=== PATIENT | female | born 1955 | race Caucasian/White ===

== ENCOUNTER → 2018-12-29 | Outpatient (CLI) | payer BC ==
[~2018-12-29] MED LIST: ASP81TEC PO; CALC-656 PO; CATHETER FLUSH 10 ML SYR IV PRN; CEPH500C PO; COENZYME B COMPLEX PO; CYAN10007 PO; ESCT10T PO; HUM100VI SQ; HYDR1CAP2 PO; MULT-608 PO; REGADENOSON 0.4 MG/5 ML SYR (LEXISCAN) IV ONE; TELM40T PO; [UNRECOGNIZED DRUG - OTHER] PO
[2018-12-29 09:40] VITALS: BP 204/75
[2018-12-29 09:44] VITALS: BP 183/59
--- NOTE | 2018-12-29 16:06 | STRESS TEST ---
DATE OF SERVICE: 12/29/2018 PRIMARY PHYSICIAN: Dr. Baptiste. OTHER PHYSICIAN: Dr. Rodriguez. CLINICAL DIAGNOSIS: Shortness of breath. Baseline images were carried out after injection of 9.52 mCi of technetium-99m Tetrofosmin. This was followed by 0.4 mg regadenoson and 27.8 mCi of technetium-99m Tetrofosmin for stress imaging. The electrocardiogram showed sinus rhythm with occasional isolated premature ventricular contractions and with left bundle branch block. The electrocardiogram did not change significantly with the regadenoson infusion. The patient noted some nausea following regadenoson infusion, which resolved in a few minutes. Review of images at rest and following stress indicates a small to medium sized basal septal perfusion defect that appears to be transient. Gated images show normal global left ventricular systolic function with normal regional wall motion. Left ventricular ejection fraction is calculated to be 62%. Left ventricular end diastolic volume is 74 mL. TID is absent (0.98). CONCLUSIONS: 1. This study is suggestive of a small to moderate amount of basal septal ischemia. 2. Normal regional wall motion. 3. Normal global left ventricular systolic function with a calculated ejection fraction of 62%. Job ID: [id number] DocumentID: [id number] Dictated Date: 12/29/2018 15:54:37 Therapist Date: 12/29/2018 16:05:44 Dictated By: SURESH BAPTISTE MD, MA, FACP, FACC,
== END ==
LOC: CARD 07:08
PROVIDERS: ATTEND Internal Medicine Cardiovascular Disease
DX: E11.9 Type 2 diabetes mellitus without complications (principal); E78.5 Hyperlipidemia, unspecified; E66.9 Obesity, unspecified; G47.33 Obstructive sleep apnea (adult) (pediatric)
CPT/HCPCS: 78452; 93017

== ENCOUNTER 2019-01-05 09:41 | Day surgery (SDC) | payer BC ==
[2019-01-05] VITALS (11 sets, daily range): BP systolic 159–188; BP diastolic 71–94
[~2019-01-05] VITALS: Ht 170.2 cm; Wt 109.3 kg
[~2019-01-05 09:41] MED LIST changes: -CATHETER FLUSH 10 ML SYR IV PRN; -REGADENOSON 0.4 MG/5 ML SYR (LEXISCAN) IV ONE
[2019-01-05] MEDS ORDERED: NS IV 1000 ML 1,000 ML ONE (09:57)
[2019-01-05] MEDS ORDERED: HEParin (CATH LAB) 2,000 ML IV ONE (09:57)
[2019-01-05] MEDS ORDERED: LIDOCAINE 1% INJ 20 ML 20 ML VIAL ONE (09:57)
[2019-01-05] MEDS ORDERED: NS IV 1000 ML 1,000 ML IV SCH ×3 (10:08→14:20)
[2019-01-05 10:25] LABS: MEAN PLATELET VOLUME 9.2 FL (7.4-10.4); RED CELL DISTRIBUTION WIDTH 13.9 % (10.0-14.5); WHITE BLOOD COUNT 5.9 10^3/uL (4.3-11.0)
[2019-01-05 10:36] LABS: PROTHROMBIN TIME PATIENT 13.7 SEC (12.2-14.7)
[2019-01-05 10:43] LABS: ALANINE AMINOTRANSFERASE 20 U/L (0-55); ALBUMIN 4.1 GM/DL (3.2-4.5); ALKALINE PHOSPHATASE 78 U/L (40-136); BILIRUBIN,TOTAL 0.8 MG/DL (0.1-1.0); BUN/CREATININE RATIO 18; CALCIUM 9.4 MG/DL (8.5-10.1); CARBON DIOXIDE 25 MMOL/L (21-32); CHLORIDE 107 MMOL/L (98-107); CHOLESTEROL 132 MG/DL (< 200); CREATININE SERUM 0.71 MG/DL (0.60-1.30); GFR ESTIMATED > 60; GLUCOSE 175 MG/DL (70-105); HDL CHOLESTEROL 60 MG/DL (40-60); POTASSIUM 4.1 MMOL/L (3.6-5.0); SODIUM 141 MMOL/L (135-145); TRIGLYCERIDES 91 MG/DL (<150); VLDL CHOLESTEROL 18 MG/DL (5-40)
[2019-01-05] MEDS ORDERED: METF-397 PO (10:56)
[2019-01-05] MEDS ORDERED: GLIP5TAB13 PO (10:56)
[2019-01-05] MEDS ORDERED: PRAM0.12 PO (10:56)
[2019-01-05] MEDS ORDERED: NITR1PAT83 TD (10:56)
[2019-01-05] MEDS ORDERED: LATA7.5D OP (10:56)
[2019-01-05] MEDS ORDERED: INSU300I3 SQ (10:56)
[2019-01-05] MEDS ORDERED: CARV6.25 PO (10:56)
[2019-01-05] MEDS ORDERED: CLOP75TA28 PO (10:56)
[2019-01-05] MEDS ORDERED: ISOS20TA73 PO (10:56)
[2019-01-05] MEDS ORDERED: DAPA10TA PO (10:56)
[2019-01-05] MEDS ORDERED: ATOR40TA70 PO (10:56)
[2019-01-05] MEDS ORDERED: fentaNYL INJECTION 100 MCG/2 ML AMP ONE (13:17)
[2019-01-05] MEDS ORDERED: MIDAZOLAM 5 MG/5 ML (VERSED) VIAL ONE (13:17)
--- NOTE | 2019-01-05 14:20 | Cardiac Procedure Note-CS/ASA ---
Pre-Procedure Note Pre-Op Procedure Note H&P Reviewed The H&P was reviewed, patient examined and no changes noted. Date H&P Reviewed: Jan 05, 2019 Time H&P Reviewed: 13:15 Conscious Sedation Pre-Proced Time 13:15 ASA Score 3 For ASA 3 and 4: Consider anesthesia and medical clearance. Also, for patients with a history of failed moderate sedation consider anesthesia. Airway Lungs Heart ASA score ASA 1: a normal healthy patient ASA 2: a patient with a mild systemic disease (mid diabetes, controlled hypertension, obesity ASA 3: a patient with a severe systemic disease that limits activity (angina, COPD, prior Myocardial infarction) ASA 4: a patient with an incapacitating disease that is a constant threat to life (CHF, renal failure) ASA 5: a moribund patient not expected to survive 24 hrs. (ruptured aneurysm) ASA 6: a declared brain- patient whose organs are being harvested. For emergent operations, add the letter E after the classification Mallampati Classification Grade 2 Sedation Plan Analgesia, Amnesia, Plan communicated to team members, Discussed options with patient/fam, Discussed risks with patient/fam The patient is an appropriate candidate to undergo the planned procedure, sedation, and anesthesia. The patient immediately re-assessed prior to indication. SURESH PHAM MD FACP FAC CCDS Jan 05, 2019 14:20
--- NOTE | 2019-01-05 14:23 | Discharge Inst-Post CATH ---
Discharge Inst-CATH/EP Problems Reviewed?: Yes Post Cardiac Cath/EP D/C Inst Follow Up/Plan F/u with Dr Baptiste in 2 weeks ACTIVITY * Go Home directly and rest. * Limit activity of the leg (or wrist if it was used) for 7 days including aerobics, swimming, jogging, bicycling, etc. * Restrict stair-climbing for 7 days if possible, if not, climb up with your non-cath leg, then bring together on the same step. * Avoid lifting, pushing, pulling or excessive movement of the affected extremity for 7 days. * Customary sexual activity may be resumed after 2 days-use caution not to use a position that strains or causes pain to the affected extremity. * No driving for 24 hours. * NO SMOKING. * Avoid straining for bowel movements for 7 days. * Gentle walking on level ground is allowed. * Returning to work will depend on the type of procedure and the results. Your doctor will discuss this with you. CALL YOUR DOCTOR FOR ANY OF THE FOLLOWING: *If bleeding from the puncture site occurs- Apply gentle pressure to site with clean cloth and call your doctor or EMS. * If a knot or lump forms under the skin, increases in size, or causes pain. * If bruising appears to be worsening or moving further down your leg instead of disappearing. * Temperature above 101 F. CARE OF YOUR GROIN INCISION; * Bruising or purple discoloration of the skin near the puncture site is common. * You may shower only, no bathtub bathing for 5 days. Be careful to avoid slipping as your leg may feel stiff. * If a closure device was used on your femoral artery, please see the attached guide regarding care of the device and your leg. * Leave dressing on FOR 24 hours. CARE OF YOUR WRIST INCISION; * Bruising or purple discoloration of the skin near the puncture site is common. * You may shower. * DO NOT submerge wrist. * Leave dressing on FOR 24 hours. SURESH BAPTISTE MD FACP FAC CCDS Jan 05, 2019 14:23
--- NOTE | 2019-01-05 14:24 | Discharge Inst-Cardiology ---
Discharge Inst-Cardiac Discharge Medications Continued Medications: Aspirin (Aspirin Ec 81 Mg) 81 Mg Tabec 81 MG PO HS Atorvastatin Calcium (Atorvastatin Calcium) 40 Mg Tablet 40 MG PO DAILY, TAB Calcium Carbonate/Vitamin D3 (Calcium 500 + D Tablet) 1 Each Tablet 1 EACH PO HS Carvedilol (Coreg) 6.25 Mg Tablet 6.25 MG PO BID, TAB Clopidogrel Bisulfate (Clopidogrel) 75 Mg Tablet 75 MG PO DAILY, TAB Cyanocobalamin (Vitamin B12) 1,000 Mcg Tablet.sa 2500 MCG PO HS Dapagliflozin Propanediol (Farxiga) 10 Mg Tablet 10 MG PO DAILY, TAB Escitalopram Oxalate (Lexapro) 10 Mg Tablet 1 EACH PO HS Glipizide (Glipizide) 5 Mg Tablet 5 MG PO DAILY, TAB Hydrocodone Bit/Acetaminophen (Hydrocodone-Apap 5-500 Cap) 1 Each Capsule 1 - 2 EACH PO Q 4 - 6 HRS PRN, #30 Insulin Glargine,Hum.rec.anlog (Toujeo Max Solostar) 300 Unit/1 Ml Insuln.pen 70 UNIT SQ DAILY, EA Isosorbide Mononitrate (Isosorbide Mononitrate) 20 Mg Tablet 30 MG PO NEEDED, TAB Latanoprost/Pf (Latanoprost 0.005% Eye Drop) 7.5 Ml Drops 7.5 ML OP HS, DROPS Metformin HCl (Metformin HCl) 500 Mg Tablet 500 MG PO BID, TAB Multivitamins (Multiple Vitamin) 1 Tab Tablet 1 TAB PO HS Nitroglycerin (Nitro-Dur 0.4 MG/HR) 1 Each Patch.td24 1 EACH TD DAILY PRN for CHEST PAIN, PATCH Pramipexole (Mirapex) 0.125 Mg Tablet 0.5 MG PO DAILY, TAB Telmisartan (Micardis) 40 Mg Tab 1 EACH PO HS [Vegtable Laxative] () 1 TAB PO HS SURESH PHAM MD FACP FAC CCDS Jan 05, 2019 14:24
[2019-01-05] MEDS ORDERED: PATIENT MAY USE OWN MEDS, ALL PO SCH (14:30)
--- NOTE | 2019-01-05 17:35 | CARDIAC CATHETERIZATION ---
DATE OF SERVICE: 01/05/2019 CARDIAC CATHETERIZATION INDICATIONS: The patient is a 63-year-old lady who is known to have coronary artery disease. She has [facility] [place] [facility]. On cardiac catheterization in 06/2014, at [facility], she was found to have an occluded right coronary artery and a revascularization attempt was unsuccessful. She is due to have knee surgery and recent myocardial perfusion imaging study indicated considerable basal septal ischemia. Cardiac catheterization was recommended for further evaluation. Informed consent was obtained. DESCRIPTION OF PROCEDURE: She was brought to the cardiac catheterization laboratory in a fasting state. Right groin was prepared and draped in the usual sterile fashion. Lidocaine 1% was used for local anesthesia. Modified Seldinger technique was used to advance a 5-Romanian sheath in right femoral artery, 5-Romanian JL4 catheter was used for left coronary angiography, 5-Romanian JR4 catheter was used for right coronary angiography, 5-Romanian pigtail catheter was used for left heart catheterization and left ventricular angiography. Diagnostic catheters were removed. Angiography of the right femoral artery had been carried out through the sheath at the beginning of the procedure. At the end of the procedure, Mynx was used to achieve hemostasis. She tolerated the procedure well. HEMODYNAMICS: Left ventricular end-diastolic pressure following coronary angiography was 10 mmHg. There is no significant pressure gradient on pullback across the aortic valve. Ascending aortic pressure was 127/61 with a mean of 90 mmHg. CORONARY ANGIOGRAPHY: Diffuse coronary calcification is present. Left main coronary artery does not exhibit significant disease. Left anterior descending artery has diffuse mild to moderate disease. Left circumflex artery has a diffuse mild to moderate disease. A sub-branch of the large first obtuse marginal branch exhibited 50-60% proximal stenosis. The right coronary artery is occluded in its mid portion and the proximal portion of a long stented segment. The right coronary artery has diffuse moderate disease in its proximal portion. LEFT VENTRICULAR ANGIOGRAPHY: Left ventricular angiography was carried out in the right anterior oblique projection. Global left ventricular systolic function is well preserved. Left ventricular ejection fraction is approximately 60%. There appears to be mild posterobasal hypokinesis. CONCLUSIONS: 1. Coronary artery disease primarily consisting of a chronically occluded stented segment of the mid to distal right coronary artery. The rest of the coronary vessels have diffuse moderate disease. 2. Normal left ventricular end-diastolic pressure. 3. Well preserved global left ventricular systolic function with an ejection fraction approximately 60%. 4. Mild posterobasal hypokinesis. DISCUSSION AND RECOMMENDATIONS: Based on results of the study, it appears appropriate to continue a conservative approach. Risk factor modification has been reviewed. She is due to have knee surgery. Her risk for knee surgery is estimated to be intermediate. This has been reviewed with her. She understands and wishes to proceed. Job ID: [id number] DocumentID: [id number] Dictated Date: 01/05/2019 14:10:10 Medical Records Administrator Date: 01/05/2019 17:34:32 Dictated By: SURESH PHAM MD, MA, FACP, FACC,
== END 2019-01-05 17:30 | disposition home or self-care (01) ==
LOC: CATH 09:41 → SDC 14:17 → CATH 17:30
PROVIDERS: ATTEND Internal Medicine Cardiovascular Disease
DX: I25.10 Atherosclerotic heart disease of native coronary artery without angina pectoris (principal); I99.8 Other disorder of circulatory system; I44.7 Left bundle-branch block, unspecified; E11.9 Type 2 diabetes mellitus without complications; E78.5 Hyperlipidemia, unspecified; E66.9 Obesity, unspecified; M17.9 Osteoarthritis of knee, unspecified; R06.02 Shortness of breath; Z68.37 Body mass index [BMI] 37.0-37.9, adult; Z99.89 Dependence on other enabling machines and devices; Z79.899 Other long term (current) drug therapy; Z79.82 Long term (current) use of aspirin; Z79.84 Long term (current) use of oral hypoglycemic drugs; Z79.891 Long term (current) use of opiate analgesic; Z87.891 Personal history of nicotine dependence; Z47.33 Aftercare following explantation of knee joint prosthesis; Z82.49 Family history of ischemic heart disease and other diseases of the circulatory system; Z80.9 Family history of malignant neoplasm, unspecified; Z83.2 Family history of diseases of the blood and blood-forming organs and certain disorders involving the immune mechanism; Z83.511 Family history of glaucoma
CPT/HCPCS: 36415; 80053; 80061; 85027; 85610; 85730; 87081; 93458

== ENCOUNTER → 2019-12-29 | Outpatient (CLI) | payer BC ==
[~2019-12-29] MED LIST changes: +ATOR40TA70 PO; +CARV6.25 PO; +CLOP75TA28 PO; +DAPA10TA PO; +GLIP5TAB13 PO; +INSU300I3 SQ; +ISOS20TA73 PO; +LATA7.5D OP; +METF-397 PO; +NITR1PAT83 TD; +PRAM0.12 PO
== END ==
LOC: LABNPT 15:08
PROVIDERS: ATTEND Family Medicine
DX: N39.0 Urinary tract infection, site not specified (principal)
CPT/HCPCS: 87077; 87088